=== PATIENT | female | born 1945 | race Asian ===

== ENCOUNTER 2019-02-21 10:01 | Day surgery (SDC) | payer OTHER ==
[~2019-02-21] VITALS: Ht 158 cm; Wt 71.7 kg
[2019-02-21] MEDS ORDERED: fentaNYL 0.05 MG/ML VIAL ONE (13:25)
[2019-02-21] MEDS ORDERED: MIDAZOLAM 2 MG/2 ML VIAL ONE ×2 (13:26)
[2019-02-21] MEDS ORDERED: LIDOCAINE 2% 100 MG/5 ML UJET TP ONE (13:26)
[2019-02-21] MEDS ORDERED: MIDAZOLAM 2 MG/2 ML VIAL IVP ONE (15:05)
[2019-02-21] MEDS ORDERED: fentaNYL 0.05 MG/ML VIAL IVP ONE (15:05)
== END 2019-02-21 14:30 | disposition home or self-care (01) ==
LOC: MOR 10:01 → MMU 10:52 → MOR 14:30
PROVIDERS: ATTEND Internal Medicine Gastroenterology
DX: Z12.11 Encounter for screening for malignant neoplasm of colon (principal); K29.70 Gastritis, unspecified, without bleeding; K20.9 Esophagitis, unspecified; E66.3 Overweight; Z80.0 Family history of malignant neoplasm of digestive organs; M19.90 Unspecified osteoarthritis, unspecified site; I10 Essential (primary) hypertension; Z95.0 Presence of cardiac pacemaker; Z90.89 Acquired absence of other organs; Z79.899 Other long term (current) drug therapy; Z98.890 Other specified postprocedural states
CPT/HCPCS: 36415; 43239; 45378; 86677; J2250; J3010; J7030

== ENCOUNTER 2022-08-25 08:19 | Day surgery (SDC) | payer OTHER ==
[~2022-08-25] VITALS: Ht 162.6 cm; Wt 66.2 kg
[2022-08-25] MEDS ORDERED: fentaNYL citrate 0.05 MG/ML VIAL ONE (09:20)
[2022-08-25] MEDS ORDERED: LIDOCAINE 2% 100 MG/5 ML UJET TP ONE (09:21)
[2022-08-25] MEDS ORDERED: fentaNYL citrate 0.05 MG/ML VIAL IVP ONE (10:05)
== END 2022-08-25 10:25 | disposition home or self-care (01) ==
LOC: MOR 08:19 → MMU 08:20 → MOR 10:25
PROVIDERS: ATTEND Internal Medicine Gastroenterology
DX: R19.7 Diarrhea, unspecified (principal); I12.9 Hypertensive chronic kidney disease with stage 1 through stage 4 chronic kidney disease, or unspecified chronic kidney disease; N18.30 Chronic kidney disease, stage 3 unspecified; E03.9 Hypothyroidism, unspecified; E78.00 Pure hypercholesterolemia, unspecified; Z90.89 Acquired absence of other organs; Z20.822 Contact with and (suspected) exposure to COVID-19; Z79.01 Long term (current) use of anticoagulants; Z79.899 Other long term (current) drug therapy
CPT/HCPCS: 45331; 87426; 88304; J3010; 45330